=== PATIENT | male | born 1940 | race African-American/Black ===

== ENCOUNTER 2018-12-15 14:38 | Inpatient (IN) ==
[2018-12-15] MEDS ORDERED: HYDROmorphone 2 MG/1 ML VIAL IV STA (14:58)
[2018-12-15] MEDS ORDERED: SODIUM CHLORIDE 0.9% 1,000 ML IV STA (14:58)
[2018-12-15] MEDS ORDERED: ONDANSETRON 4 MG/2 ML VIAL IV STA (14:58)
[2018-12-15 15:51] LABS: Basophils # 0.1 10*3/uL (0.0-0.2); Basophils % 0.4 % (0.0-0.8); Hematocrit 39.2 VOL% (42.0-52.0); Hemoglobin 12.8 GM/DL (14.0-18.0); Immature Granulocytes % 2.1 %; Lymphocytes # 1.4 10*3/uL (1.4-4.0); Lymphocytes % 5.8 % (21.2-54.2); Mean Corpuscular HGB Conc 32.7 GM/DL (32-36); Mean Corpuscular Volume 80.3 FL (87-102); Mean Platelet Volume 10.3 FL (9.6-12.0); Monocytes % 3.9 % (1.7-12.7); Neutrophils % 87.8 % (38.7-73.9); Platelet Count 220 T/CUMM (130-400); Red Blood Count 4.88 MC/CUMM (3.8-5.5); Red Cell Distribution Width 18.3 % (9.3-17.3); White Blood Count 23.9 T/CUMM (4-12)
[2018-12-15 16:10] LABS: Alanine Aminotransferase 11 U/L (16-61); Albumin 3.4 G/DL (3.4-5.0); Alkaline Phosphatase 116 U/L (45-117); Aspartate Amino Transferase 11 U/L (0-37); Bilirubin,Total < 0.39 MG/DL (0.2-1.0); Blood Urea Nitrogen 9 MG/DL (7-18); Calcium 9.9 MG/DL (8.5-10.1); Glucose 98 MG/DL (74-106); Total Protein 8.1 G/DL (6.4-8.3)
[2018-12-15 16:15] LABS: Lymphocytes 5 % (20-55); Nucleated Red Blood Cells 2 (0-5); Segmented Neutrophils 92 % (50-85); Total Cells Counted 100
[2018-12-15 16:16] LABS: Macrocytosis Slight; Platelet Estimate Normal
[2018-12-15] MEDS ORDERED: cefTRIAXone 1,000 MG in SODIUM CHLORIDE 0.9% 100 ML IV STA (16:47)
[2018-12-15] MEDS ORDERED: SODIUM CHLORIDE 0.9% 1,000 ML IV SCH (17:30)
[2018-12-15] MEDS ORDERED: MORPHINE 4 MG/1 ML VIAL IV PRN (17:30)
[2018-12-15] MEDS ORDERED: fentaNYL 25 MCG/HR PATCH TRANSDERM SCH (18:00)
[2018-12-15] MEDS ORDERED: FAMOTIDINE 20 MG/2 ML VIAL IV SCH (21:00)
[2018-12-15] MEDS: PIPERACILLIN/TAZOBACTAM 3,375 MG in SODIUM CHLORIDE 0.9% 100 ML IV SCH (22:37)
[2018-12-15] MEDS: HEPARIN 5,000 UNIT/1 ML VIAL SUBCUT SCH (23:16)
[2018-12-16] MEDS: VANCOMYCIN INJ 1,000 MG in SODIUM CHLORIDE 0.9% 250 ML IV SCH ×2 (02:48→17:28)
[2018-12-16 03:52] LABS: Apearance,Urine CLEAR (Clear); Bilirubin,Urine Negative (Negative); Blood, Urine Negative (Negative); Glucose,Urine (UA) Negative (Negative); Hyaline Casts,Urine 25 /LPF (0-3); Ketones,Urine Negative (Negative); Mucus,Urine Occasional /LPF (Occasional); Nitrite,Urine Negative (Negative); Protein,Urine Negative; RBC,Urine <1 /HPF (0-4); Urine Color Straw (Yellow); Urine Specific Gravity 1.009 (1.001-1.035); Urine Urobilinogen < 2.0 EU/DL (0.2-1.0)
[2018-12-16] MEDS: POTASSIUM CHLORIDE RIDER 10 MEQ in PREMIX 1 EACH IV PRN ×5 (04:29→11:51)
[2018-12-16] MEDS: HEPARIN 5,000 UNIT/1 ML VIAL SUBCUT SCH (05:35)
[2018-12-16 05:55] LABS: Basophils # 0.2 10*3/uL (0.0-0.2); Basophils % 0.7 % (0.0-0.8); Hematocrit 48.6 VOL% (42.0-52.0); Hemoglobin 15.2 GM/DL (14.0-18.0); Immature Granulocytes % 1.8 %; Immature Granulocytes Absolute 0.46 #; Lymphocytes # 1.3 10*3/uL (1.4-4.0); Lymphocytes % 5.2 % (21.2-54.2); Mean Corpuscular HGB Conc 31.3 GM/DL (32-36); Mean Corpuscular Volume 83.2 FL (87-102); Monocytes % 3.9 % (1.7-12.7); Neutrophils % 88.4 % (38.7-73.9); Platelet Count 169 T/CUMM (130-400); Red Blood Count 5.84 MC/CUMM (3.8-5.5); Red Cell Distribution Width 19.7 % (9.3-17.3)
[2018-12-16 06:30] LABS: Albumin 2.8 G/DL (3.4-5.0); Bilirubin,Total 0.4 MG/DL (0.2-1.0); Total Protein 7.3 G/DL (6.4-8.3)
[2018-12-16 07:45] LABS: Band Neutrophils 3 % (0-10); Lymphocytes 5 % (20-55); Metamyelocytes 7 %; Myelocytes 5 %; Platelet Estimate Normal; Promyelocytes 2 %; Segmented Neutrophils 77 % (50-85); Total Cells Counted 100
[2018-12-16 07:46] LABS: Anisocytosis 1+; Hypochromasia Slight; Macrocytosis 1+; Ovalocytes 1+
[2018-12-16] MEDS ORDERED: diphenhydrAMINE 50 MG/1 ML VIAL IV ONE (08:17)
[2018-12-16] MEDS ORDERED: LORazepam 2 MG/1 ML VIAL IV ONE (08:17)
[2018-12-16] MEDS ORDERED: PANTOPRAZOLE 40 MG VIAL IV SCH (09:00)
[2018-12-16] MEDS: PANTOPRAZOLE 40 MG VIAL IV SCH ×2 (09:48→22:12)
[2018-12-16] MEDS: SODIUM CHLOR 0.9% KCL 40 MEQ 40 MEQ/1,000 ML BAG IV SCH (12:00)
[2018-12-16] MEDS: PIPERACILLIN/TAZOBACTAM 3,375 MG in SODIUM CHLORIDE 0.9% 100 ML IV SCH ×2 (12:57→22:10)
[2018-12-16] MEDS ORDERED: MAGNESIUM SULF RIDER 2 GM in PREMIX 1 EACH IV PRN (17:15)
[2018-12-16] MEDS ORDERED: MAGNESIUM SULF RIDER 4 GM in PREMIX 1 EACH IV PRN (17:15)
[2018-12-16] MEDS ORDERED: LORazepam 1 MG TABLET PO ONE (21:00)
[2018-12-17] MEDS: VANCOMYCIN INJ 1,000 MG in SODIUM CHLORIDE 0.9% 250 ML IV SCH (05:06)
[2018-12-17 05:40] LABS: Basophils # 0.1 10*3/uL (0.0-0.2); Basophils % 0.3 % (0.0-0.8); Hematocrit 38.5 VOL% (42.0-52.0); Immature Granulocytes % 1.5 %; Lymphocytes # 1.3 10*3/uL (1.4-4.0); Lymphocytes % 6.7 % (21.2-54.2); Mean Corpuscular Volume 79.7 FL (87-102); Mean Platelet Volume 10.9 FL (9.6-12.0); Monocytes % 5.5 % (1.7-12.7); Red Blood Count 4.83 MC/CUMM (3.8-5.5); Red Cell Distribution Width 18.6 % (9.3-17.3); White Blood Count 19.4 T/CUMM (4-12)
[2018-12-17 05:48] LABS: Hemoglobin 12.7 GM/DL (14.0-18.0)
[2018-12-17 05:49] LABS: Platelet Count 235 T/CUMM (130-400)
[2018-12-17 06:13] LABS: Albumin 2.7 G/DL (3.4-5.0); Bilirubin,Total 0.9 MG/DL (0.2-1.0); Calcium 9.1 MG/DL (8.5-10.1); Osmolality,Calculated 284.7 MOS/KG (273-304); Total Protein 7.2 G/DL (6.4-8.3)
[2018-12-17] MEDS: PIPERACILLIN/TAZOBACTAM 3,375 MG in SODIUM CHLORIDE 0.9% 100 ML IV SCH ×3 (06:37→22:24)
[2018-12-17] MEDS: PANTOPRAZOLE 40 MG VIAL IV SCH ×2 (09:36→22:25)
[2018-12-17] MEDS: POTASSIUM CHLORIDE 20 MEQ/15 ML UDCUP PER TUBE PRN ×4 (09:39→17:17)
[2018-12-17] MEDS: SODIUM CHLOR 0.9% KCL 40 MEQ 40 MEQ/1,000 ML BAG IV SCH ×2 (09:42→22:22)
[2018-12-18 05:13] LABS: Basophils # 0.1 10*3/uL (0.0-0.2); Basophils % 0.2 % (0.0-0.8); Hematocrit 37.7 VOL% (42.0-52.0); Hemoglobin 12.5 GM/DL (14.0-18.0); Immature Granulocytes % 1.4 %; Immature Granulocytes Absolute 0.32 #; Lymphocytes # 1.6 10*3/uL (1.4-4.0); Lymphocytes % 6.8 % (21.2-54.2); Mean Corpuscular HGB Conc 33.2 GM/DL (32-36); Mean Corpuscular Volume 80.2 FL (87-102); Mean Platelet Volume 10.4 FL (9.6-12.0); Monocytes % 3.9 % (1.7-12.7); Neutrophils % 87.7 % (38.7-73.9); Platelet Count 234 T/CUMM (130-400); Red Cell Distribution Width 18.4 % (9.3-17.3); White Blood Count 23.1 T/CUMM (4-12)
[2018-12-18 05:23] LABS: Albumin 2.7 G/DL (3.4-5.0); Bilirubin,Total 1.1 MG/DL (0.2-1.0); Calcium 9.1 MG/DL (8.5-10.1); Osmolality,Calculated 284.7 MOS/KG (273-304); Total Protein 6.9 G/DL (6.4-8.3)
[2018-12-18 05:44] LABS: Hypochromasia 1+; Macrocytosis Slight; Platelet Estimate Adequate
[2018-12-18] MEDS: PIPERACILLIN/TAZOBACTAM 3,375 MG in SODIUM CHLORIDE 0.9% 100 ML IV SCH (06:53)
[2018-12-18] MEDS: POTASSIUM CHLORIDE 20 MEQ/15 ML UDCUP PER TUBE PRN ×2 (06:53→08:21)
[2018-12-18] MEDS: PANTOPRAZOLE 40 MG VIAL IV SCH (08:21)
[2018-12-18] MEDS: SODIUM CHLOR 0.9% KCL 40 MEQ 40 MEQ/1,000 ML BAG IV SCH (10:03)
[2018-12-18 12:15] VITALS: BP 140/70
== END 2018-12-18 14:04 | disposition home health service (06) | DRG 640 ==
LOC: N.ED 14:38 → N.EDINP 17:29 → N.5E 18:14
PROVIDERS: ADMIT Family Medicine; ATTEND Family Medicine

== ENCOUNTER 2018-12-25 13:40 | Inpatient (IN) ==
[2018-12-25] MEDS ORDERED: SODIUM CHLORIDE 0.9% 1,000 ML IV STA (14:27)
[2018-12-25] MEDS ORDERED: ONDANSETRON 4 MG/2 ML VIAL IV STA (14:27)
[2018-12-25 14:45] LABS: Basophils # 0.1 10*3/uL (0.0-0.2); Basophils % 0.3 % (0.0-0.8); Hematocrit 42.9 VOL% (42.0-52.0); Hemoglobin 13.5 GM/DL (14.0-18.0); Immature Granulocytes % 0.8 %; Immature Granulocytes Absolute 0.15 #; Lymphocytes # 0.3 10*3/uL (1.4-4.0); Lymphocytes % 1.7 % (21.2-54.2); Mean Corpuscular HGB Conc 31.5 GM/DL (32-36); Mean Corpuscular Volume 81.7 FL (87-102); Mean Platelet Volume 9.9 FL (9.6-12.0); Monocytes % 4.8 % (1.7-12.7); Neutrophils % 92.4 % (38.7-73.9); Platelet Count 458 T/CUMM (130-400); Red Blood Count 5.25 MC/CUMM (3.8-5.5); White Blood Count 19.1 T/CUMM (4-12)
[2018-12-25 14:59] LABS: Albumin 2.8 G/DL (3.4-5.0); Bilirubin,Total 0.8 MG/DL (0.2-1.0); Calcium 9.8 MG/DL (8.5-10.1); Total Protein 8.2 G/DL (6.4-8.3)
[2018-12-25 15:23] LABS: Apearance,Urine Slightly Hazy (Clear); Bacteria,Urine Occasional /HPF (Few); Bilirubin,Urine Negative (Negative); Blood, Urine Small mg/dL (Negative); Glucose,Urine (UA) Negative (Negative); Hyaline Casts,Urine 40 /LPF (0-3); Ketones,Urine Negative (Negative); Mucus,Urine Occasional /LPF (Occasional); Nitrite,Urine Negative (Negative); Protein,Urine Negative; RBC,Urine 1 /HPF (0-4); Squamous Epithelial Cell,Urine Occasional /HPF (0-10); Urine Color Yellow (Yellow); Urine Specific Gravity 1.014 (1.001-1.035); Urine Urobilinogen < 2.0 EU/DL (0.2-1.0); WBC,Urine 2 /HPF (0-6)
[2018-12-25 15:27] LABS: Band Neutrophils 3 % (0-10); Lymphocytes 2 % (20-55); Platelet Estimate Adequate; Platelet Satellitism 1+; Segmented Neutrophils 89 % (50-85); Total Cells Counted 100
[2018-12-25 15:28] LABS: Microcytosis 1+
[2018-12-25 15:29] LABS: Ovalocytes Few
[2018-12-25] MEDS: AMPICILLIN/SULBACTAM 3,000 MG in SODIUM CHLORIDE 0.9% 100 ML IV SCH (18:20)
[2018-12-26] MEDS: AMPICILLIN/SULBACTAM 3,000 MG in SODIUM CHLORIDE 0.9% 100 ML IV SCH ×3 (02:22→17:12)
[2018-12-26 06:30] LABS: Basophils % 0.1 % (0.0-0.8); Hematocrit 40.2 VOL% (42.0-52.0); Hemoglobin 13.1 GM/DL (14.0-18.0); Immature Granulocytes % 1.3 %; Immature Granulocytes Absolute 0.33 #; Lymphocytes # 0.4 10*3/uL (1.4-4.0); Lymphocytes % 1.6 % (21.2-54.2); Mean Corpuscular HGB Conc 32.6 GM/DL (32-36); Mean Corpuscular Volume 81.9 FL (87-102); Mean Platelet Volume 10.5 FL (9.6-12.0); Platelet Count 429 T/CUMM (130-400); Red Blood Count 4.91 MC/CUMM (3.8-5.5); Red Cell Distribution Width 19.1 % (9.3-17.3); White Blood Count 25.2 T/CUMM (4-12)
[2018-12-26 06:38] LABS: PT Patient Result 10.8 SECS
[2018-12-26 06:55] LABS: Calcium 9.6 MG/DL (8.5-10.1); Free T4 (Free Thyroxine) 0.64 NG/DL (0.76-1.46); Osmolality,Calculated 307.4 MOS/KG (273-304); Thyroid Stimulating Hormone 6.09 uIU/ml (0.358-3.74)
[2018-12-26 06:55] LABS: Band Neutrophils 1 % (0-10); Segmented Neutrophils 95 % (50-85); Total Cells Counted 100
[2018-12-26 06:56] LABS: Acanthocytes 1+; Anisocytosis 1+; Platelet Estimate Normal
[2018-12-26] MEDS: DEXTROSE 5% NACL 0.45% 1,000 ML IV SCH (09:16)
[2018-12-26] MEDS: MORPHINE 4 MG/1 ML VIAL IV PRN (09:22)
[2018-12-27] MEDS: DEXTROSE 5% NACL 0.45% 1,000 ML IV SCH (00:10)
[2018-12-27] MEDS: AMPICILLIN/SULBACTAM 3,000 MG in SODIUM CHLORIDE 0.9% 100 ML IV SCH ×3 (00:30→18:25)
[2018-12-27 06:41] LABS: Basophils # 0.1 10*3/uL (0.0-0.2); Basophils % 0.2 % (0.0-0.8); Hematocrit 43.4 VOL% (42.0-52.0); Hemoglobin 13.8 GM/DL (14.0-18.0); Immature Granulocytes % 0.9 %; Immature Granulocytes Absolute 0.21 #; Lymphocytes # 0.6 10*3/uL (1.4-4.0); Lymphocytes % 2.5 % (21.2-54.2); Mean Corpuscular HGB Conc 31.8 GM/DL (32-36); Mean Corpuscular Volume 81.7 FL (87-102); Mean Platelet Volume 10.3 FL (9.6-12.0); Neutrophils % 92.4 % (38.7-73.9); Platelet Count 408 T/CUMM (130-400); Red Blood Count 5.31 MC/CUMM (3.8-5.5); Red Cell Distribution Width 19.6 % (9.3-17.3)
[2018-12-27 07:10] LABS: Band Neutrophils 6 % (0-10); Lymphocytes 3 % (20-55); Platelet Estimate Normal; Segmented Neutrophils 89 % (50-85); Total Cells Counted 100
[2018-12-27 07:11] LABS: Anisocytosis 1+; Giant Platelets Few
[2018-12-27 07:12] LABS: Poikilocytosis Slight
[2018-12-27 07:17] LABS: Calcium 9.7 MG/DL (8.5-10.1); Osmolality,Calculated 311.2 MOS/KG (273-304)
[2018-12-27] MEDS ORDERED: DEXTROSE 5% 1,000 ML IV SCH (08:00)
[2018-12-27] MEDS: DEXTROSE 5% 1,000 ML IV SCH ×3 (08:09→11:13)
[2018-12-27 10:30] LABS: Calcium 9.3 MG/DL (8.5-10.1); Osmolality,Calculated 314.6 MOS/KG (273-304)
[2018-12-27] MEDS: POTASSIUM CHLORIDE RIDER 10 MEQ in PREMIX 1 EACH IV SCH ×4 (11:43→15:59)
[2018-12-27] MEDS ORDERED: DEXTROSE 5% KCL 20 MEQ 20 MEQ/1,000 ML BAG IV SCH (14:00)
[2018-12-27] MEDS: MORPHINE 4 MG/1 ML VIAL IV PRN (18:26)
[2018-12-27] MEDS ORDERED: POTASSIUM CHLORIDE 20 MEQ TABLET PO ONE (22:00)
[2018-12-27 22:25] LABS: Calcium 9.6 MG/DL (8.5-10.1); Osmolality,Calculated 313.9 MOS/KG (273-304)
[2018-12-27] MEDS: POTASSIUM CHLORIDE RIDER 10 MEQ in PREMIX 1 EACH IV PRN (22:54)
[2018-12-28] MEDS: POTASSIUM CHLORIDE RIDER 10 MEQ in PREMIX 1 EACH IV PRN ×4 (00:01→05:01)
[2018-12-28] MEDS ORDERED: POTASSIUM CHLORIDE 20 MEQ TABLET PO ONE (04:00)
[2018-12-28] MEDS: AMPICILLIN/SULBACTAM 3,000 MG in SODIUM CHLORIDE 0.9% 100 ML IV SCH ×3 (05:02→18:04)
[2018-12-28 05:17] LABS: Calcium 9.1 MG/DL (8.5-10.1); Osmolality,Calculated 303.6 MOS/KG (273-304)
[2018-12-28] MEDS ORDERED: FUROSEMIDE 20 MG/2 ML VIAL IV ONE (07:29)
[2018-12-28] MEDS: DEXTROSE 5% 1,000 ML IV SCH ×6 (07:37→18:11)
[2018-12-28 08:02] LABS: Calcium 9.2 MG/DL (8.5-10.1); Osmolality,Calculated 301.7 MOS/KG (273-304)
[2018-12-28] MEDS ORDERED: SODIUM CHLORIDE 0.9% 500 ML IV SCH (08:48)
[2018-12-28] MEDS ORDERED: LACTATED RINGERS 1,000 ML IV SCH (08:52)
[2018-12-28] MEDS ORDERED: PROPOFOL 200 MG/20 ML VIAL IV ONE (12:00)
[2018-12-28] MEDS ORDERED: LIDOCAINE 2% 5 ML VIAL ONE (12:00)
[2018-12-28] MEDS ORDERED: ETOMIDATE 20 MG/10 ML VIAL IV ONE (12:00)
[2018-12-28] MEDS ORDERED: cefOXitin 2,000 MG in SYRINGE 1 EACH IV ONE (15:05)
[2018-12-28] MEDS: MORPHINE 4 MG/1 ML VIAL IV PRN (21:53)
[2018-12-29] MEDS: AMPICILLIN/SULBACTAM 3,000 MG in SODIUM CHLORIDE 0.9% 100 ML IV SCH ×2 (02:50→14:05)
[2018-12-29 04:38] LABS: Basophils % 0.2 % (0.0-0.8); Hematocrit 40.1 VOL% (42.0-52.0); Hemoglobin 12.9 GM/DL (14.0-18.0); Immature Granulocytes % 0.9 %; Immature Granulocytes Absolute 0.18 #; Lymphocytes # 0.9 10*3/uL (1.4-4.0); Lymphocytes % 4.9 % (21.2-54.2); Mean Corpuscular HGB Conc 32.2 GM/DL (32-36); Mean Corpuscular Volume 81.8 FL (87-102); Mean Platelet Volume 10.8 FL (9.6-12.0); Monocytes % 6.5 % (1.7-12.7); Neutrophils % 87.5 % (38.7-73.9); Platelet Count 438 T/CUMM (130-400); Red Cell Distribution Width 18.8 % (9.3-17.3); White Blood Count 19.1 T/CUMM (4-12)
[2018-12-29 05:17] LABS: Calcium 9.5 MG/DL (8.5-10.1); Lymphocytes 6 % (20-55); Osmolality,Calculated 307.3 MOS/KG (273-304); Platelet Estimate Normal; Segmented Neutrophils 93 % (50-85); Total Cells Counted 100
[2018-12-29 05:18] LABS: Hypochromasia Slight
[2018-12-29] MEDS: DEXTROSE 5% 1,000 ML IV SCH ×6 (06:56→16:46)
[2018-12-29] MEDS: POTASSIUM CHLORIDE RIDER 10 MEQ in PREMIX 1 EACH IV PRN ×4 (08:45→12:21)
[2018-12-29 10:50] LABS: Calcium 8.9 MG/DL (8.5-10.1); Osmolality,Calculated 307.4 MOS/KG (273-304)
[2018-12-29] MEDS: DEXTROSE 5% NACL 0.45% 1,000 ML IV SCH ×2 (15:53→15:54)
[2018-12-29 16:47] LABS: Calcium 8.7 MG/DL (8.5-10.1); Osmolality,Calculated 299.7 MOS/KG (273-304)
[2018-12-29] MEDS: MEROPENEM 1,000 MG in SODIUM CHLORIDE 0.9% 100 ML IV SCH ×2 (16:58→23:16)
[2018-12-29] MEDS: TRACE ELEMENTS (5) 1 ML, MULTIVITAMIN INJ 10 ML in AMINO ACIDS/DEXT/LYTES 4.25-5% 2,000 ML IV SCH (16:59)
[2018-12-29] MEDS: FAT EMULSION 20% 250 ML IV SCH (16:59)
[2018-12-30] MEDS: MORPHINE 4 MG/1 ML VIAL IV PRN ×3 (01:05→22:26)
[2018-12-30 05:40] LABS: Basophils % 0.2 % (0.0-0.8); Eosinophils % 0.3 % (0.00-10.9); Hemoglobin 11.7 GM/DL (14.0-18.0); Immature Granulocytes % 0.9 %; Immature Granulocytes Absolute 0.15 #; Lymphocytes # 0.8 10*3/uL (1.4-4.0); Lymphocytes % 5.3 % (21.2-54.2); Mean Corpuscular HGB Conc 31.6 GM/DL (32-36); Mean Corpuscular Volume 80.8 FL (87-102); Mean Platelet Volume 10.3 FL (9.6-12.0); Monocytes % 5.8 % (1.7-12.7); Neutrophils % 87.5 % (38.7-73.9); Platelet Count 348 T/CUMM (130-400); Red Blood Count 4.58 MC/CUMM (3.8-5.5); Red Cell Distribution Width 18.8 % (9.3-17.3); White Blood Count 15.9 T/CUMM (4-12)
[2018-12-30 06:21] LABS: Calcium 8.6 MG/DL (8.5-10.1); Osmolality,Calculated 296.1 MOS/KG (273-304); Prealbumin 5.6 MG/DL (20-40)
[2018-12-30] MEDS: DEXTROSE 5% 1,000 ML IV SCH ×2 (08:52→10:03)
[2018-12-30] MEDS: MEROPENEM 1,000 MG in SODIUM CHLORIDE 0.9% 100 ML IV SCH ×2 (08:53→15:41)
[2018-12-30] MEDS: POTASSIUM CHLORIDE RIDER 10 MEQ in PREMIX 1 EACH IV PRN ×4 (16:29→22:34)
[2018-12-30] MEDS: FAT EMULSION 20% 250 ML IV SCH (16:29)
[2018-12-30] MEDS: TRACE ELEMENTS (5) 1 ML, MULTIVITAMIN INJ 10 ML in AMINO ACIDS/DEXT/LYTES 4.25-5% 2,000 ML IV SCH (16:30)
[2018-12-31] MEDS: MEROPENEM 1,000 MG in SODIUM CHLORIDE 0.9% 100 ML IV SCH ×4 (00:53→22:00)
[2018-12-31 04:09] LABS: Calcium 8.8 MG/DL (8.5-10.1); Osmolality,Calculated 291.6 MOS/KG (273-304)
[2018-12-31 06:11] LABS: Basophils % 0.2 % (0.0-0.8); Eosinophils # 0.1 10*3/uL (0.0-0.87); Eosinophils % 0.4 % (0.00-10.9); Hematocrit 39.3 VOL% (42.0-52.0); Hemoglobin 12.3 GM/DL (14.0-18.0); Immature Granulocytes Absolute 0.15 #; Lymphocytes # 0.7 10*3/uL (1.4-4.0); Lymphocytes % 4.7 % (21.2-54.2); Mean Corpuscular HGB Conc 31.3 GM/DL (32-36); Mean Corpuscular Volume 81.4 FL (87-102); Mean Platelet Volume 10.6 FL (9.6-12.0); Monocytes % 6.7 % (1.7-12.7); Platelet Count 362 T/CUMM (130-400); Red Blood Count 4.83 MC/CUMM (3.8-5.5); Red Cell Distribution Width 19.4 % (9.3-17.3); White Blood Count 15.5 T/CUMM (4-12)
[2018-12-31 07:03] LABS: Band Neutrophils 2 % (0-10); Lymphocytes 4 % (20-55); Platelet Estimate Normal; Segmented Neutrophils 89 % (50-85); Total Cells Counted 100
[2018-12-31] MEDS: POTASSIUM CHLORIDE RIDER 10 MEQ in PREMIX 1 EACH IV PRN ×3 (09:02→12:34)
[2018-12-31] MEDS: TRACE ELEMENTS (5) 1 ML, MULTIVITAMIN INJ 10 ML in AMINO ACIDS/DEXT/LYTES 4.25-5% 2,000 ML IV SCH (14:28)
[2018-12-31] MEDS: FAT EMULSION 20% 250 ML IV SCH ×2 (14:28→17:12)
[2018-12-31] MEDS: MORPHINE 4 MG/1 ML VIAL IV PRN (21:52)
[2019-01-01 05:40] LABS: Basophils % 0.1 % (0.0-0.8); Eosinophils # 0.2 10*3/uL (0.0-0.87); Hematocrit 37.4 VOL% (42.0-52.0); Hemoglobin 12.3 GM/DL (14.0-18.0); Immature Granulocytes % 0.6 %; Immature Granulocytes Absolute 0.09 #; Lymphocytes # 0.8 10*3/uL (1.4-4.0); Lymphocytes % 5.4 % (21.2-54.2); Mean Corpuscular HGB Conc 32.9 GM/DL (32-36); Mean Corpuscular Volume 81.1 FL (87-102); Mean Platelet Volume 11.5 FL (9.6-12.0); Monocytes % 7.3 % (1.7-12.7); Neutrophils % 85.6 % (38.7-73.9); Red Blood Count 4.61 MC/CUMM (3.8-5.5); Red Cell Distribution Width 19.2 % (9.3-17.3); White Blood Count 14.4 T/CUMM (4-12)
[2019-01-01 06:00] LABS: Platelet Count 220 T/CUMM (130-400)
[2019-01-01 06:07] LABS: Hypochromasia 1+; Platelet Estimate Adequate
[2019-01-01 06:17] LABS: Calcium 8.8 MG/DL (8.5-10.1); Osmolality,Calculated 292.4 MOS/KG (273-304)
[2019-01-01] MEDS: MEROPENEM 1,000 MG in SODIUM CHLORIDE 0.9% 100 ML IV SCH ×3 (09:31→23:04)
[2019-01-01] MEDS ORDERED: TUBERCULIN SKIN TEST 0.1 ML SYRINGE INTRADERM ONE (11:30)
[2019-01-01] MEDS: MORPHINE 4 MG/1 ML VIAL IV PRN ×2 (12:13→23:13)
[2019-01-01] MEDS: TRACE ELEMENTS (5) 1 ML, MULTIVITAMIN INJ 10 ML in AMINO ACIDS/DEXT/LYTES 4.25-5% 2,000 ML IV SCH (12:16)
[2019-01-01] MEDS: FAT EMULSION 20% 250 ML IV SCH (17:20)
[2019-01-02] MEDS: MORPHINE 4 MG/1 ML VIAL IV PRN (03:21)
[2019-01-02] MEDS ORDERED: fentaNYL 100 MCG/2 ML VIAL IV ONE (08:00)
[2019-01-02] MEDS ORDERED: MIDAZOLAM 2 MG/2 ML VIAL IV ONE (08:00)
[2019-01-02 08:13] LABS: Basophils % 0.2 % (0.0-0.8); Eosinophils # 0.1 10*3/uL (0.0-0.87); Eosinophils % 1.3 % (0.00-10.9); Hematocrit 40.6 VOL% (42.0-52.0); Hemoglobin 12.8 GM/DL (14.0-18.0); Immature Granulocytes % 0.7 %; Immature Granulocytes Absolute 0.07 #; Lymphocytes # 0.8 10*3/uL (1.4-4.0); Lymphocytes % 7.5 % (21.2-54.2); Mean Corpuscular HGB Conc 31.5 GM/DL (32-36); Mean Corpuscular Volume 81.7 FL (87-102); Mean Platelet Volume 10.8 FL (9.6-12.0); Monocytes % 7.5 % (1.7-12.7); Neutrophils % 82.8 % (38.7-73.9); Platelet Count 358 T/CUMM (130-400); Red Blood Count 4.97 MC/CUMM (3.8-5.5); Red Cell Distribution Width 19.3 % (9.3-17.3); White Blood Count 10.7 T/CUMM (4-12)
[2019-01-02 08:28] LABS: Calcium 8.5 MG/DL (8.5-10.1); Osmolality,Calculated 293.4 MOS/KG (273-304)
[2019-01-02] MEDS ORDERED: fentaNYL 100 MCG/2 ML VIAL ONE (09:57)
[2019-01-02] MEDS ORDERED: MIDAZOLAM 2 MG/2 ML VIAL ONE (09:57)
[2019-01-02] MEDS ORDERED: GLUCAGON 1 MG VIAL ONE (10:49)
[2019-01-02] MEDS ORDERED: GLUCAGON 1 MG VIAL IV PRN (10:53)
[2019-01-02] MEDS: MEROPENEM 1,000 MG in SODIUM CHLORIDE 0.9% 100 ML IV SCH ×3 (12:30→23:36)
[2019-01-02] MEDS: TRACE ELEMENTS (5) 1 ML, MULTIVITAMIN INJ 10 ML in AMINO ACIDS/DEXT/LYTES 4.25-5% 2,000 ML IV SCH (13:24)
[2019-01-02] MEDS: FAT EMULSION 20% 250 ML IV SCH (18:46)
[2019-01-02] MEDS: DEXTROSE 10% 1,000 ML IV SCH (22:10)
[2019-01-03 06:49] LABS: Basophils % 0.3 % (0.0-0.8); Eosinophils # 0.1 10*3/uL (0.0-0.87); Eosinophils % 1.4 % (0.00-10.9); Hematocrit 39.4 VOL% (42.0-52.0); Hemoglobin 12.7 GM/DL (14.0-18.0); Immature Granulocytes % 0.7 %; Immature Granulocytes Absolute 0.07 #; Lymphocytes # 0.8 10*3/uL (1.4-4.0); Lymphocytes % 8.6 % (21.2-54.2); Mean Corpuscular HGB Conc 32.2 GM/DL (32-36); Mean Corpuscular Volume 81.4 FL (87-102); Mean Platelet Volume 10.9 FL (9.6-12.0); Monocytes % 9.8 % (1.7-12.7); Neutrophils % 79.2 % (38.7-73.9); Platelet Count 365 T/CUMM (130-400); Red Blood Count 4.84 MC/CUMM (3.8-5.5); Red Cell Distribution Width 19.1 % (9.3-17.3); White Blood Count 9.8 T/CUMM (4-12)
[2019-01-03 07:25] LABS: Calcium 8.4 MG/DL (8.5-10.1); Osmolality,Calculated 296.1 MOS/KG (273-304); Prealbumin 10.7 MG/DL (20-40)
[2019-01-03] MEDS: MEROPENEM 1,000 MG in SODIUM CHLORIDE 0.9% 100 ML IV SCH ×3 (09:29→23:25)
[2019-01-03] MEDS: FAT EMULSION 20% 250 ML IV SCH (18:13)
[2019-01-03] MEDS: TRACE ELEMENTS (5) 1 ML, MULTIVITAMIN INJ 10 ML in AMINO ACIDS/DEXT/LYTES 4.25-5% 2,000 ML IV SCH (18:13)
[2019-01-03] MEDS: DEXTROSE 10% 1,000 ML IV SCH (23:28)
[2019-01-04 05:58] LABS: Basophils % 0.4 % (0.0-0.8); Eosinophils # 0.1 10*3/uL (0.0-0.87); Eosinophils % 1.2 % (0.00-10.9); Hematocrit 39.4 VOL% (42.0-52.0); Hemoglobin 12.7 GM/DL (14.0-18.0); Immature Granulocytes % 0.5 %; Immature Granulocytes Absolute 0.05 #; Lymphocytes # 0.8 10*3/uL (1.4-4.0); Mean Corpuscular HGB Conc 32.2 GM/DL (32-36); Mean Corpuscular Volume 81.6 FL (87-102); Monocytes % 8.9 % (1.7-12.7); Platelet Count 372 T/CUMM (130-400); Red Blood Count 4.83 MC/CUMM (3.8-5.5); Red Cell Distribution Width 18.8 % (9.3-17.3); White Blood Count 9.2 T/CUMM (4-12)
[2019-01-04] MEDS: MEROPENEM 1,000 MG in SODIUM CHLORIDE 0.9% 100 ML IV SCH (06:32)
[2019-01-04 06:33] LABS: Calcium 8.6 MG/DL (8.5-10.1); Osmolality,Calculated 299.9 MOS/KG (273-304)
[2019-01-04 11:59] VITALS: BP 120/64
== END 2019-01-04 12:40 | DRG 640 ==
LOC: EDUNIT# → EDBD → N.ED 13:40 → N.EDINP 15:26 → SUATTDRO 15:26 → N.4E 19:04
PROVIDERS: ADMIT Internal Medicine; ATTEND Hospitalist
PROC: EGDWPEG (ICD-10-PCS; 2018-12-28 07:35)